=== PATIENT | female | born 1955 | race Caucasian/White ===

== ENCOUNTER → 2020-06-28 18:43 | Outpatient (CLI) | payer MEDICARE | END | disposition home or self-care (01) | LOC: D.LABREF 18:43 | PROVIDERS: ATTEND Orthopaedic Surgery | DX: M17.11 Unilateral primary osteoarthritis, right knee (principal) ==

== ENCOUNTER 2020-08-11 08:00 | Outpatient (CLI) | payer MEDICARE ==
[~2020-08-11 08:00] MED LIST: ALPHAGAN 0.2%5 ML; CALCIUM 500 +1 EAC3 PO; LUTEIN20 MG PO; MAGNESIUM OXID500 MG PO; POTASSIUM99 M1 PO; ULTRAM50 MG; VITAMIN B-1100 M1 PO; VITAMIN D 22000 UNIT PO
[2020-08-17 15:00] VITALS: BMI 33.7
== END 2020-08-11 08:01 | disposition home or self-care (01) ==
LOC: D.OPS 08:00
PROVIDERS: ATTEND Orthopaedic Surgery
DX: M17.11 Unilateral primary osteoarthritis, right knee (principal); M21.061 Valgus deformity, not elsewhere classified, right knee; D64.9 Anemia, unspecified

== ENCOUNTER 2020-08-17 08:15 | Observation (INO) | payer MEDICARE ==
[2020-08-11 12:03] LABS: BILIRUBIN NEGATIVE (NEGATIVE); KETONE NEGATIVE (NEGATIVE); NITRITE NEGATIVE (NEGATIVE); UROBILINOGEN NORMAL mg/dL (< 2)
[2020-08-11 13:11] LABS: BASOPHILS 0.4 % (0-2); EOSINOPHILS 0.7 % (0-7); HEMATOCRIT 41.5 % (36.0-48.0); HEMOGLOBIN 13.4 g/dL (12-16); IMMATURE GRANULOCYTES 0.2 % (0-5); LYMPHOCYTE ABS# 1.59 10x3/uL (1.18-3.74); LYMPHOCYTES 35.7 % (15-50); MCH 30.5 pg (26.0-34.0); MCHC 32.3 g/dL (31.0-37.0); MCV 94.5 fL (80.0-100.0); MEAN PLATELET VOLUME 11.2 fL (7.4-10.4); MONOCYTES 6.5 % (2-11); NEUTROPHIL ABS# 2.51 10x3/uL (1.56-6.13); NEUTROPHILS 56.5 % (40-80); PLATELET COUNT 182 10x3/uL (130-400); RBC 4.39 10x6/uL (4.00-5.40); WBC 4.5 10x3/uL (4.8-10.8)
[2020-08-11 13:20] LABS: CALC OSMOLALITY 286 mosm/kg (275-300); CALCIUM 9.8 mg/dL (8.5-10.1); CARBON DIOXIDE 33.5 mmol/L (21.0-32.0); CHLORIDE - SERUM 103 mmol/L (98-107); CREATININE - SERUM 0.8 mg/dL (0.6-1.3); GLUCOSE 97 mg/dL (74-106); POTASSIUM - SERUM 3.5 mmol/L (3.5-5.1); SODIUM 143 mmol/L (136-145); UREA NITROGEN 17 mg/dL (7-18); eGFR NON AFRICAN AMERICAN 76 mL/min (90-120)
[2020-08-11 13:22] LABS: APTT 24.8 SECONDS (22.8-39.4); INR 1.03 (0.85-1.17); PROTIME 12.5 SECONDS (11.6-15.0)
[2020-08-17] VITALS (8 sets, daily range): BP systolic 106–123; BP diastolic 48–81; Ht 154.9 cm; Wt 80.9 kg
[~2020-08-17] VITALS: Ht 154.9 cm; Wt 80.9 kg
--- NOTE | 2020-08-17 12:53 | NUR ---
RIGHT LEG CLEANSED WITH HIBECLENS AND ALCOHOL FROM THIGH TO TOES CIRCUMFERENTIALLY PRIOR TO PREP. PREPPED WITH CHLORAPREP X2B FROM THIGH TO TOES CIRCUMFERENTIALLY RN IN STERILE ATTIRE TO PREP. PLASMA BLADE SET TO 6/8.
--- NOTE | 2020-08-17 15:07 | NUR ---
PT RECIEVED PER PACU PER BED. AWAKE AND ALERT. NO COMPLAINTS OF PAIN OR DISCOMFORT AT PRESENT. DRESSING AND EMMA WRAP TO RIGHT KNEE CLEAN DRY AND INTACT. AMANDA CAMPBELL AND SCD BILAT NOTED. CALL LIGHT IN REACH. FALL ALARM ON AND ACTIVE
--- NOTE | 2020-08-17 17:31 | NUR ---
pt placed in cpm machine call light in reach ice bag to right knee. fall alarm on and active.
--- NOTE | 2020-08-17 19:23 | MORECARE ---
CASE MANAGEMENT DISCHARGE SUMMARY PATIENT: ROSANNE FRAGA UNIT: [id number] ADM DATE: 08/17/20 AGE: 65 : 54 SEX: F ROOM/BED: D.1212 AUTHOR: JOSEPH,DOC PHYSICIAN: REFERRING PHYSICIAN: STEVEN HAWLEY DO DATE OF SERVICE: 08/17/20 Case Management Discharge Planning Summary COMMENTS ENTERED DATE: 08/17/20 19:15 CT COMMENT TYPE: Discharge Planning REVIEWER: Anshul Mclain CM met with patient to complete DC plan and to evaluate needs. Patient lives independently with her spouse, Marty Fraga, . Patient stated that her home is safe and has electricity and running water. Patient stated that the home has 4 steps to enter and she is able to manage the steps without difficulty. Patient stated that she has no problems paying for medications and she fills her medications at [facility] on [facility]. Patient stated that her primary care physician is Dr. Radha Salas. At discharge, the patient plans to return home and feels this is a safe discharge. CM discussed availability of home health, rehab services, and medical equipment. Patient declined HHS, SNF, and IPR. Patient would like OP PT Services with [facility]. Patient stated that her CPM and Walker were delivered before surgery. Walker noted in room. Patient stated that she would like to have a BSC through [facility]. KACIE signed and placed in chart. Patient voiced no other needs at this time and is satisfied with DC plan. Transportation provider at discharge will be with her , Luis. MARQUEZ delivered, explained, signed by the patient, and placed in chart. Signed form also left with the patient. CM will continue to follow and will assist as needed with dc plans/needs DCP REVIEW SUMMARY ANTICIPATED D/C DATE: EXPECTED LOS : CASE STATUS: DCP Initiated INITIAL REVIEW: 08/17/2020 INITIAL REVIEWER: Anshul Mclain FINAL DISCHARGE DISPOSITION: : FINAL REVIEWER: FINAL REVIEW DATE: DCP Focus Questions & Answers DCP Evaluation QUESTION: ANSWER Patient and/or caregiver agree upon recommended discharge plan? : Yes Family / Caregiver's ability to cope with chronic illness: : a. Adequate (ability to meet patient's medical needs, ensures patient attends medical appts.) Patient's current cognitive status: : *Oriented to person, place, situation, time and present Patient's ability to cope with chronic illness : d. No chronic illness Patient gives permission to discuss discharge plans with: (name, relationship and number) : spouse, Marty Fraga, Does the patient have the ability to pay for or attain post discharge needs / services? : Yes Functional screen assessment: : Basic needs can adequately be met by self Family / Caregiver's ability to cope with chronic illness: : a. Adequate (ability to meet patient's medical needs, ensures patient attends medical appts.) Physical Status: : Independent with ADL's Equipment needed for post hospitalization: : Bedside Commode Is there a likelihood that the patient will require additional services to return to the preadmission environment? : Yes Living Arrangements: : Home with Spouse/Significant Other Patient with capacity for self-care or can be cared for in same environment as prior to hospitalization? : Yes Baseline cognitive status: : *Oriented to person, place, situation, time and present Physical environment modification needed / anticipated for discharge: : No Medication Management: : Patient states can read and understand medication labels Medication Management: : Patient states can afford medications Pharmacy name(s): : [facility] on [address]. Does Patient have transportation to get home and to follow-up medical appointments when discharged from the hospital? : Yes Would patient like to participate in any Care Coordination programs (if applicable): : Not applicable Does the patient have electricity at home? : Yes Does the patient have running water in their house? : Yes Other Equipment comments: : ART WALKER Mental health screen: : No mental health history DCP Re-evaluation QUESTION: ANSWER Would patient like to participate in any Care Coordination programs (if applicable): : Not applicable PATIENT: ROSANNE FRAGA ENCOUNTER: [id number] MEDICAL RECORD#: [id number] ADMISSION DATE: 08/17/2020 DISCHARGE DATE: ATTENDING MD: STEVEN HARRIS : AGE: 65 MARITAL STATUS: M DC PLAN ID: [id number] FACILITY: [facility] PRINTED ON: 08/17/20 19:22 CT All edits/amendments must be made on the electronic document DICTATION DATE: 08/17/201921 CABIN SERVICE AGENT: JONO 08/17/201921 RPT#: [id number] DC DATE: STATUS: ADM IN [facility] [address] [place] [address] END OF REPORT
--- NOTE | 2020-08-17 19:45 | NUR ---
PATIENT RESTING IN BED WITH NO S/S OF DISTRESS AND DENIES NEEDS AT THIS TIME. GUEST AT BEDSIDE. IV INFUSING TO LEFT FA. PATIENT ON CPM TO RIGHT KNEE. BED IN LOWEST POSITION, CALL LIGHT IN REACH, AND BED ALARM ON. ENCOURAGED PATIENT TO CALL WITH NEEDS.
--- NOTE | 2020-08-17 20:25 | NUR ---
REMOVED PATIENT FROM CPM MACHINE
[2020-08-18 00:10] VITALS: BP 113/62
[2020-08-18 05:32] VITALS: BP 120/54
--- NOTE | 2020-08-18 06:30 | NUR ---
PLACED PATIENT ON CPM TO RIGHT KNEE
[2020-08-18 07:00] VITALS: BP 114/42
--- NOTE | 2020-08-18 07:30 | NUR ---
AWAKE AND ALERT. ORIENTED X3. NO C/O AT THIS TIME. ON CPM. LUNGS ARE CLEAR BILATERALLY, NO COUGH NOTED. SKIN INTACT WITHOUT REDNESS EXCEPT INCISION TO RIGHT KNEE WHICH HAS A DRY INTACT DRESSING IN PLACE. IV TO RIGHT FOREARM IS PATENT WITHOUT REDNESS AT INSERTION SITE. UP TO CHAIR AT BEDSIDE, MOD ASSIST X2. VOIDED CLEAR YELLOW URINE WITHOUT DIFFICULTY. DENIES NEEDS.
[2020-08-18 07:34] LABS: BASOPHILS 0 % (0-2); EOSINOPHILS 0 % (0-7); HEMATOCRIT 35.6 % (36.0-48.0); HEMOGLOBIN 11.6 g/dL (12-16); IMMATURE GRANULOCYTES 0.1 % (0-5); LYMPHOCYTE ABS# 1.35 10x3/uL (1.18-3.74); LYMPHOCYTES 19.2 % (15-50); MCH 30.9 pg (26.0-34.0); MCHC 32.6 g/dL (31.0-37.0); MCV 94.7 fL (80.0-100.0); MEAN PLATELET VOLUME 11.4 fL (7.4-10.4); MONOCYTES 8.5 % (2-11); NEUTROPHIL ABS# 5.08 10x3/uL (1.56-6.13); NEUTROPHILS 72.2 % (40-80); PLATELET COUNT 157 10x3/uL (130-400); RBC 3.76 10x6/uL (4.00-5.40); RDW 13.3 % (11.5-14.5)
[2020-08-18 07:54] LABS: ALBUMIN 3.1 g/dL (3.4-5.0); ALKALINE PHOSPHATASE 31 U/L (30-120); ALT (SGPT) 26 U/L (10-68); BILIRUBIN - TOTAL 0.34 mg/dL (0.2-1.3); CALC OSMOLALITY 277 mosm/kg (275-300); CARBON DIOXIDE 28.5 mmol/L (21.0-32.0); CHLORIDE - SERUM 103 mmol/L (98-107); CREATININE - SERUM 0.8 mg/dL (0.6-1.3); GLUCOSE 120 mg/dL (74-106); MAGNESIUM - SERUM 1.9 mg/dL (1.8-2.4); POTASSIUM - SERUM 4.1 mmol/L (3.5-5.1); PROTEIN - SERUM 6.1 g/dL (6.4-8.2); SODIUM 139 mmol/L (136-145); UREA NITROGEN 10 mg/dL (7-18); eGFR NON AFRICAN AMERICAN 76 mL/min (90-120)
--- NOTE | 2020-08-18 09:55 | NUR ---
ATE ALL OF BREAKFAST. TOOK AM MEDS WITHOUT DIFFICULTY. AMBULATED IN HALLWAY IWTH PT USING RW. DENIES NEEDS.
--- NOTE | 2020-08-18 10:57 | NUR ---
REQUESTED AND GIVEN ONE HYDROCODONE PO WITH 50MG VISTARIL PO FOR C/O RIGHT KNEE PAIN LEVEL 8. WILL MONITOR.
[2020-08-18 11:00] VITALS: BP 93/43
--- NOTE | 2020-08-18 12:30 | NUR ---
ATE MOST OF LUNCH. DENIES NEEDS.
--- NOTE | 2020-08-18 14:41 | NUR ---
REQUESTED AND GIVEN 5MG PERCOCET WITH 50 MG VISTARIL PO FOR C/O RIGHT KNEE PAIN LEVEL 8. WILL MONITOR.
--- NOTE | 2020-08-18 15:05 | OP ---
PATIENT NAME: ROSANNE FRAGA MEDICAL RECORD: [id number] :53 [facility] ADMISSION DATE:08/17/20 SURGEON: NOLAN HAWLEY DO DATE OF OPERATION: 08/17/2020 PROCEDURE PERFORMED: Right total knee arthroplasty. PREOPERATIVE DIAGNOSIS: Right knee osteoarthritis with a valgus deformity. POSTOPERATIVE DIAGNOSIS: Right knee osteoarthritis with a valgus deformity. INDICATION: Ms. Fraga is a 65-year-old female known to me for about 4 years getting injections for her knee. She has tried all manner of nonoperative treatment including physical therapy, injections to no avail. She wants something done surgically. She is aware of the risks including infection, bleeding, damage to nerve or vessel, need for further surgery, continued pain, failure of implants, fracture, blood clots and even and signed a consent. SURGEON: Nolan Hawley DO DESCRIPTION OF PROCEDURE: The patient was taken to the operative suite after getting an adductor canal block, laid in the supine position, sedated and intubated. She was given 2 grams Ancef, 80 mg gentamicin, and a gram of TXA. The right lower extremity was then prepped and draped in sterile fashion. Timeout was performed. Everyone was in agreement with the correct site, side, patient, and procedure. I then began by making an incision through the anterior knee after marking out and covered in Ioban. I then made careful dissection down to the capsule, used fresh 10 blade and did a medial parapatellar approach. Any bleeding was coagulated with Aquamantys. I then everted the patella, took out part of the fat pad, removed the osteophytes from the patella, milled the patella down, used the caliper to measure it, milled down to approximately 13 mm. I then flexed the knee, took out the ACL, went to the femoral canal, irrigated that out, and removed the bone. I then put the intramedullary guide in for the distal femur cut, pinned it into place and cut the distal femur. I then exposed the proximal tibia and cut it, marked off the low side, which was the lateral side, cut, removed that and the menisci. I then brought it to extension and the extension block fit well. I then flexed the knee up and sized the femur to be 7. I used the 7, 4-in-1 cutting block, after using the ethan wing to ensure that there was no notching. I then removed that, measured the tibia to be an E, pinned that in place. Put the femoral trial on and poly in between and went up to a 12. The 12 fit very well poly. No instability or really any gapping at all with varus and valgus stress in flexion, extension, mid flexion. I then drilled the lug holes in the femur, removed that and the poly, trial poly, then reamed and punched the tibia, put extra holes in the tibia on the surface and excess cement, irrigated the tibia and put the cement on the implant, impacted it in place, removed excess cement from that. I then impacted on the femur, put a trial poly in between, brought the knee in extension, cleaned out the patellar holes. I drilled for a 29 and put the cement in the patella and on the implant, squeezed it into place, removed the excess cement off the tibia, put in 10% povidone-iodine and 500 mL normal saline solution, let it sit for few minutes, irrigated that out, and injected the joint cocktail around the periosteum and the quads. I then decided to go with a 12 poly as it fit very well. I removed the trial and attempted to put a new one in and had impinged on the fat pad laterally, so I had to remove that and put another one in. Cleared out the fat pad and irrigated and put a new one in. I OPERATIVE REPORT [id number] ROSANNE FRAGA then put in Mona and vancomycin and tobramycin powder and the knee ranged very well and closed the capsule with #1 Vicryl in [id number]-bu-usljf fashion. Ney Garrett, certified surgical dental assistant, then ran a #1 Stratafix on the capsule and then closed the skin with 2-0 Vicryl in an inverted interrupted fashion, put on ZipLine, 4 x 4, ABD, Webril, Ezio wrap and AMANDA hose stockings. She was awakened and taken to recovery in stable condition. Blood loss was approximately 200 mL. Complications none. She was given another gram of TXA, taken to the PACU in stable condition. TRANSINT:[id number] Voice Confirmation ID: [id number] DOCUMENT ID: [id number] NOLAN HAWLEY DO at 1505 CC: [id number] DICTATION DATE: 08/17/20 1325 MANAGER REGULATORY: 08/17/20 2007 ADM IN [facility] [address] [place] [address]
--- NOTE | 2020-08-18 17:38 | MORECARE ---
CASE MANAGEMENT DISCHARGE SUMMARY PATIENT: ROSANNE FRAGA UNIT: [id number] ADM DATE: 08/17/20 AGE: 65 : 54 SEX: F ROOM/BED: D.1212 AUTHOR: JOSEPH,DOC PHYSICIAN: REFERRING PHYSICIAN: STEVEN HAWLEY DO DATE OF SERVICE: 08/18/20 Case Management Discharge Planning Summary COMMENTS ENTERED DATE: 08/18/20 17:16 CT COMMENT TYPE: Discharge Planning REVIEWER: Meaghan Ovalle CM called [facility] and scheduled patient's outpatient therapy appointment for Sunday at 13:00. CM faxed orders and records as requested. CM met with patient and instructed her on appointment time. Patient verbalized understanding and satisfaction with discharge plans. BSC has been delivered by DME and is in patient's room. CM put patient's copy of therapy appointment in chart for nurse to give her upon discharge with DC instructions. Denies any other discharge planning needs at this time. CM informed nurse Emma of above. ENTERED DATE: 08/17/20 19:15 CT COMMENT TYPE: Discharge Planning REVIEWER: Anshul Mclain CM met with patient to complete DC plan and to evaluate needs. Patient lives independently with her spouse, Marty Fraga, . Patient stated that her home is safe and has electricity and running water. Patient stated that the home has 4 steps to enter and she is able to manage the steps without difficulty. Patient stated that she has no problems paying for medications and she fills her medications at [facility] on [facility]. Patient stated that her primary care physician is Dr. Radha Salas. At discharge, the patient plans to return home and feels this is a safe discharge. CM discussed availability of home health, rehab services, and medical equipment. Patient declined HHS, SNF, and IPR. Patient would like OP PT Services with [facility]. Patient stated that her CPM and Walker were delivered before surgery. Walker noted in room. Patient stated that she would like to have a BSC through [facility]. KACIE signed and placed in chart. Patient voiced no other needs at this time and is satisfied with DC plan. Transportation provider at discharge will be with her , Luis. MARQUEZ delivered, explained, signed by the patient, and placed in chart. Signed form also left with the patient. CM will continue to follow and will assist as needed with dc plans/needs DCP REVIEW SUMMARY ANTICIPATED D/C DATE: EXPECTED LOS : CASE STATUS: DCP Initiated INITIAL REVIEW: 08/17/2020 INITIAL REVIEWER: Anshul Mclain FINAL DISCHARGE DISPOSITION: : FINAL REVIEWER: FINAL REVIEW DATE: DCP Focus Questions & Answers DCP Evaluation QUESTION: ANSWER Patient gives permission to discuss discharge plans with: (name, relationship and number) : spouse, Marty Fraga, Patient's ability to cope with chronic illness : d. No chronic illness Patient's current cognitive status: : *Oriented to person, place, situation, time and present Family / Caregiver's ability to cope with chronic illness: : a. Adequate (ability to meet patient's medical needs, ensures patient attends medical appts.) Patient and/or caregiver agree upon recommended discharge plan? : Yes Physical Status: : Independent with ADL's Family / Caregiver's ability to cope with chronic illness: : a. Adequate (ability to meet patient's medical needs, ensures patient attends medical appts.) Functional screen assessment: : Basic needs can adequately be met by self Does the patient have the ability to pay for or attain post discharge needs / services? : Yes Living Arrangements: : Home with Spouse/Significant Other Is there a likelihood that the patient will require additional services to return to the preadmission environment? : Yes Equipment needed for post hospitalization: : Bedside Commode Baseline cognitive status: : *Oriented to person, place, situation, time and present Patient with capacity for self-care or can be cared for in same environment as prior to hospitalization? : Yes Physical environment modification needed / anticipated for discharge: : No Medication Management: : Patient states can afford medications Medication Management: : Patient states can read and understand medication labels Pharmacy name(s): : [facility] on [address]. Does Patient have transportation to get home and to follow-up medical appointments when discharged from the hospital? : Yes Would patient like to participate in any Care Coordination programs (if applicable): : Not applicable Does the patient have electricity at home? : Yes Does the patient have running water in their house? : Yes Other Equipment comments: : CPM, WALKER Mental health screen: : No mental health history DCP Re-evaluation QUESTION: ANSWER Would patient like to participate in any Care Coordination programs (if applicable): : Not applicable PATIENT: ROSANNE FRAGA ENCOUNTER: [id number] MEDICAL RECORD#: [id number] ADMISSION DATE: 08/17/2020 DISCHARGE DATE: ATTENDING MD: STEVEN HARRIS : AGE: 65 MARITAL STATUS: M DC PLAN ID: [id number] FACILITY: [facility] PRINTED ON: 08/18/20 17:38 CT All edits/amendments must be made on the electronic document DICTATION DATE: 08/18/201737 CARPENTRY SPECIALIST: JONO 08/18/201737 RPT#: [id number] DC DATE: STATUS: ADM IN [facility] [address] [place] [address] END OF REPORT
[2020-08-18 20:00] VITALS: BP 110/40
--- NOTE | 2020-08-18 20:00 | NUR ---
ALERT RESTING IN BED CPM IN USE, REPORTS PAIN TO KNEE, SEE SHIFT ASSESSMENT, CALL LIGHT IN REACH
[2020-08-19 04:20] VITALS: BP 132/55
[2020-08-19 06:15] LABS: BASOPHILS 0.4 % (0-2); EOSINOPHILS 0.8 % (0-7); HEMATOCRIT 32.1 % (36.0-48.0); HEMOGLOBIN 10.5 g/dL (12-16); IMMATURE GRANULOCYTES 0.2 % (0-5); LYMPHOCYTE ABS# 1.46 10x3/uL (1.18-3.74); LYMPHOCYTES 28.4 % (15-50); MCH 30.7 pg (26.0-34.0); MCHC 32.7 g/dL (31.0-37.0); MCV 93.9 fL (80.0-100.0); MEAN PLATELET VOLUME 11.3 fL (7.4-10.4); MONOCYTES 6.8 % (2-11); NEUTROPHIL ABS# 3.26 10x3/uL (1.56-6.13); NEUTROPHILS 63.4 % (40-80); PLATELET COUNT 137 10x3/uL (130-400); RBC 3.42 10x6/uL (4.00-5.40); RDW 13.2 % (11.5-14.5)
[2020-08-19 06:23] LABS: WBC 5.1 10x3/uL (4.8-10.8)
[2020-08-19 06:25] LABS: ALBUMIN 2.9 g/dL (3.4-5.0); ALKALINE PHOSPHATASE 36 U/L (30-120); ALT (SGPT) 22 U/L (10-68); BILIRUBIN - TOTAL 0.43 mg/dL (0.2-1.3); CALC OSMOLALITY 277 mosm/kg (275-300); CALCIUM 8.3 mg/dL (8.5-10.1); CARBON DIOXIDE 28.5 mmol/L (21.0-32.0); CHLORIDE - SERUM 106 mmol/L (98-107); CREATININE - SERUM 0.8 mg/dL (0.6-1.3); GLUCOSE 107 mg/dL (74-106); POTASSIUM - SERUM 3.7 mmol/L (3.5-5.1); PROTEIN - SERUM 5.8 g/dL (6.4-8.2); SODIUM 140 mmol/L (136-145); UREA NITROGEN 9 mg/dL (7-18); eGFR NON AFRICAN AMERICAN 76 mL/min (90-120)
[2020-08-19 07:27] VITALS: BP 118/59
--- NOTE | 2020-08-19 07:28 | NUR ---
PT IS RESTING IN BED WITH EYES CLOSED. RESPIRATIONS ARE EVEN AND UNLABORED. PT IS EASILY AROUSED WITH VERBAL STIMULATION AND IS AAO X 4 UPON AROUSAL. CPM NOTED TO RLE. DRESSING TO RIGHT KNEE IS CDI. PT DENIES PRESENCE OF NUMBNESS/TINGLING TO BLE. CAP REFILL TO BLE IS < 3. PIV TO RIGHT FA IS SL AND FLUSHES WITHOUT DIFFICULTY/COMPROMISE. PT DENIES BM SINCE PROCEDURE BUT REPORTS PASSING GAS "OFTEN". PT DENIES PRESENCE OF PAIN/N/V AT THIS TIME. PT DENIES PRESENCE OF SOB/DYSPNEA AT THIS TIME. INCENTIVE SPIROMETER AT BEDSIDE AND ENCOURAGED. PT VERBALIZES UNDERSTANDING. BED IS IN THE LOWEST POSITION. CALL LIGHT AND BEDSIDE TABLE ARE WITHIN REACH. SIDE RAILS X 2. PT DENIES FURTHER NEEDS. WILL CONT TO MONITOR.
[2020-08-19] MEDS ORDERED: ELIQUIS2.5 MG PO (07:43)
[2020-08-19] MEDS ORDERED: VISTARIL50 MG PO (07:44)
[2020-08-19] MEDS ORDERED: PERCOCET 10-321 EAC1 PO (07:44)
--- NOTE | 2020-08-19 08:00 | NUR ---
CPM MACHINE REMOVED. PT ASSISTED TO BR WITH WALKER ASSISTANCE AND MINIMAL STAND BY ASSIST. PT DENIES PRESENCE OF DIZZINESS/SOB/DYSPNEA WITH POSITION CHANGE. PT DENIES PRESENCE OF DYSURIA WITH VOIDING. PT ASSISTED BACK TO BED POST VOID USING WALKER AND MINIMAL STANDBY ASSIST. BED ALARM IS ON. SCDS TO BLE ARE ON. BREAKFAST TRAY WITHIN REACH. BED IS IN THE LOWEST POSITION. CALL LIGHT AND BEDSIDE TABLE ARE WITHIN REACH. SIDE RAILS X 2. PT DENIES FURTHER NEEDS. WILL CONT TO MONITOR.
--- NOTE | 2020-08-19 11:03 | NUR ---
DRESSING CHANGED TO RIGHT KNEE PER ORDER. EXTRA DRESSING SUPPLIES GIVEN TO PT X 4. PT TOLERATED WELL. PIV TO RIGHT FA REMOVED WITH CATHETER TIP INTACT. DRESSING APPLIED. ALL DISCHARGE INSTRUCTIONS WRITTEN AND VERBAL COVERED WITH PT. (3) PRINTED RX GIVEN TO PT. PT DENIES FURTHER QUESTIONS/NEEDS AT THIS TIME. ALL DISCHARGE PAPERS SIGNED BY PT. PT TO NOTIFY NURSE WHEN READY FOR TRANSPORT FROM ROOM. ALL SIGNED DC PAPERS PLACED IN PT CHART.
--- NOTE | 2020-08-19 11:30 | NUR ---
PT NOTIFIES NURSE THAT TRANSPORTATION HAS ARRIVED AND DRESSING ASSISTANCE GIVEN. HOSPITAL COBBLER [facility]CKAY CALLED TO ESCORT PT FROM ROOM.
--- NOTE | 2020-08-19 11:45 | NUR ---
PT ESCORTED FROM PT ROOM VIA WHEELCHAIR BY HOSPITAL SPACE AND STORAGE CLERK STAFF. PT DENIES FURTHER QUESTIONS/CONCERNS/NEEDS AND THANKS THIS NURSE FOR CARE GIVEN DURING THIS SHIFT AND VERBALIZES CONTENT AND HAPPINESS WITH HOSPITAL STAY AND CARE GIVEN DURING ENTIRE ADMISSION. PT REPORTS THAT SHE DOES HAVE ALL PERSONAL BELONINGS AND DENIES FURTHER NEEDS.
--- NOTE | 2020-08-19 12:12 | MORECARE ---
CASE MANAGEMENT DISCHARGE SUMMARY PATIENT: ROSANNE FRAGA UNIT: [id number] ADM DATE: 08/17/20 AGE: 65 : 53 SEX: F ROOM/BED: D.1212 AUTHOR: JOSEPH,DOC PHYSICIAN: REFERRING PHYSICIAN: STEVEN HAWLEY DO DATE OF SERVICE: 08/19/20 Case Management Discharge Planning Summary COMMENTS ENTERED DATE: 08/18/20 17:16 CT COMMENT TYPE: Discharge Planning REVIEWER: Meaghan Ovalle CM called [facility] and scheduled patient's outpatient therapy appointment for Sunday at 13:00. CM faxed orders and records as requested. CM met with patient and instructed her on appointment time. Patient verbalized understanding and satisfaction with discharge plans. BSC has been delivered by DME and is in patient's room. CM put patient's copy of therapy appointment in chart for nurse to give her upon discharge with DC instructions. Denies any other discharge planning needs at this time. CM informed nurse Emma of above. ENTERED DATE: 08/17/20 19:15 CT COMMENT TYPE: Discharge Planning REVIEWER: Anshul Mclain CM met with patient to complete DC plan and to evaluate needs. Patient lives independently with her spouse, Marty Fraga, . Patient stated that her home is safe and has electricity and running water. Patient stated that the home has 4 steps to enter and she is able to manage the steps without difficulty. Patient stated that she has no problems paying for medications and she fills her medications at [facility] on [facility]. Patient stated that her primary care physician is Dr. Radha Salas. At discharge, the patient plans to return home and feels this is a safe discharge. CM discussed availability of home health, rehab services, and medical equipment. Patient declined HHS, SNF, and IPR. Patient would like OP PT Services with [facility]. Patient stated that her CPM and Walker were delivered before surgery. Walker noted in room. Patient stated that she would like to have a BSC through [facility]. KACIE signed and placed in chart. Patient voiced no other needs at this time and is satisfied with DC plan. Transportation provider at discharge will be with her , Luis. MARQUEZ delivered, explained, signed by the patient, and placed in chart. Signed form also left with the patient. CM will continue to follow and will assist as needed with dc plans/needs DCP REVIEW SUMMARY ANTICIPATED D/C DATE: EXPECTED LOS : CASE STATUS: DCP Initiated INITIAL REVIEW: 08/17/2020 INITIAL REVIEWER: Anshul Mclain FINAL DISCHARGE DISPOSITION: : FINAL REVIEWER: FINAL REVIEW DATE: DCP Focus Questions & Answers DCP Evaluation QUESTION: ANSWER Patient and/or caregiver agree upon recommended discharge plan? : Yes Family / Caregiver's ability to cope with chronic illness: : a. Adequate (ability to meet patient's medical needs, ensures patient attends medical appts.) Patient's current cognitive status: : *Oriented to person, place, situation, time and present Patient's ability to cope with chronic illness : d. No chronic illness Patient gives permission to discuss discharge plans with: (name, relationship and number) : spouse, Marty Fraga, Does the patient have the ability to pay for or attain post discharge needs / services? : Yes Functional screen assessment: : Basic needs can adequately be met by self Family / Caregiver's ability to cope with chronic illness: : a. Adequate (ability to meet patient's medical needs, ensures patient attends medical appts.) Physical Status: : Independent with ADL's Equipment needed for post hospitalization: : Bedside Commode Is there a likelihood that the patient will require additional services to return to the preadmission environment? : Yes Living Arrangements: : Home with Spouse/Significant Other Patient with capacity for self-care or can be cared for in same environment as prior to hospitalization? : Yes Baseline cognitive status: : *Oriented to person, place, situation, time and present Physical environment modification needed / anticipated for discharge: : No Medication Management: : Patient states can read and understand medication labels Medication Management: : Patient states can afford medications Pharmacy name(s): : [facility] on [address]. Does Patient have transportation to get home and to follow-up medical appointments when discharged from the hospital? : Yes Would patient like to participate in any Care Coordination programs (if applicable): : Not applicable Does the patient have electricity at home? : Yes Does the patient have running water in their house? : Yes Other Equipment comments: : CPM, WALKER Mental health screen: : No mental health history DCP Re-evaluation QUESTION: ANSWER Would patient like to participate in any Care Coordination programs (if applicable): : Not applicable PATIENT: ROSANNE FRAGA ENCOUNTER: [id number] MEDICAL RECORD#: [id number] ADMISSION DATE: 08/17/2020 DISCHARGE DATE: 08/19/2020 ATTENDING MD: STEVEN HARRIS : AGE: 65 MARITAL STATUS: M DC PLAN ID: [id number] FACILITY: [facility] PRINTED ON: 08/19/20 12:12 CT All edits/amendments must be made on the electronic document DICTATION DATE: 08/19/20 121 PACK WORKER SUPERVISOR: JONO 08/19/201211 RPT#: [id number] DC DATE:08/19/20 STATUS: DIS IN [facility] [address] [place] [address] END OF REPORT
== END 2020-08-19 12:02 | disposition home or self-care (01) ==
LOC: D.OPS 08:15 → D.M3 08:15 → D.OPS 08:40 → EDSTATUS 09:30 → D.SDCHOLD 09:30 → D.OPS 09:30 → D.M3 10:20 → D.OPS 10:45 → D.M3 10:47 → D.OPS 10:47 → OBSVTIME 10:47 → D.M3 08-19 12:02
PROVIDERS: Family Medicine; ADMIT Orthopaedic Surgery; ATTEND Orthopaedic Surgery
DX: M17.11 Unilateral primary osteoarthritis, right knee (principal); M21.061 Valgus deformity, not elsewhere classified, right knee; D64.9 Anemia, unspecified